=== PATIENT | female | born 1950 | race Caucasian/White ===

== ENCOUNTER 2023-05-24 19:10 | Inpatient (IN) | payer MEDICARE, OTHER ==
[~2023-05-24] VITALS: Ht 157.5 cm; Wt 96.6 kg
[2023-05-24 19:58] LABS: BASOPHILS # (AUTO) 0.1 K/UL (0.0-0.2); BASOPHILS % (AUTO) 0.9 % (0.0-2.0); EOSINOPHILS # (AUTO) 0.2 K/uL (0.0-0.7); EOSINOPHILS % (AUTO) 1.7 % (0.0-7.0); HEMATOCRIT 41.6 % (31.2-41.9); HEMOGLOBIN 13.9 g/dL (10.9-14.3); LYMPHOCYTES # (AUTO) 3.8 K/uL (0.8-4.8); LYMPHOCYTES % (AUTO) 38.8 % (20.5-51.5); MEAN CORPUSCULAR HEMOGLOBIN 31.5 uug (24.7-32.8); MEAN CORPUSCULAR HGB CONC 33 g/dL (32.3-35.6); MEAN CORPUSCULAR VOLUME 94.5 fL (75.5-95.3); MONOCYTES # (AUTO) 0.7 K/uL (0.1-1.30); MONOCYTES % (AUTO) 7.6 % (0.0-11.0); PLATELET COUNT (AUTO) 149 K/uL (179-408); RED CELL DISTRIBUTION WIDTH 13.8 % (12.3-17.7); WHITE BLOOD COUNT (AUTO) 9.7 K/uL (3.8-11.8)
[2023-05-24] MEDS ORDERED: MEMA10TA PO (20:00)
[2023-05-24] MEDS ORDERED: ASPI81TA31 PO (20:00)
[2023-05-24] MEDS ORDERED: OXYC5CAP18 PO (20:00)
[2023-05-24] MEDS ORDERED: DULO20CA PO (20:00)
[2023-05-24] MEDS ORDERED: ACET-3117 PO (20:00)
[2023-05-24] MEDS ORDERED: TOPI100T PO (20:00)
[2023-05-24] MEDS ORDERED: OXYC5TAB3 PO (20:00)
[2023-05-24] MEDS ORDERED: ATOR20TA PO (20:00)
[2023-05-24] MEDS ORDERED: FOLI400T4 PO (20:00)
[2023-05-24 20:04] LABS: DIFFERENTIAL COMMENT 1
[2023-05-24 20:10] LABS: CALCIUM 9.2 mg/dL (8.5-10.1); CARBON DIOXIDE 26 mmol/L (21-32); CHLORIDE 106 mmol/L (98-107); CREATININE 1.2 mg/dL (0.6-1.3); GLUCOSE 112 mg/dL (74-106); POTASSIUM 3.5 mmol/L (3.5-5.1); SODIUM SERUM 143 mmol/L (136-145); UREA NITROGEN, BLOOD 31 mg/dL (7-18)
[2023-05-24 20:15] LABS: ALANINE AMINOTRANSFERASE 26 U/L (14-59); ALBUMIN 3.3 g/dL (3.4-5.0); ALKALINE PHOSPHATASE 113 U/L (50-136); ASPARTATE AMINOTRANSFERASE 20 U/L (15-37); BILIRUBIN,DIRECT 0.1 mg/dL (0.0-0.2); BILIRUBIN,TOTAL 0.3 mg/dL (0.2-1.0); TOTAL PROTEIN, SERUM 6.8 g/dL (6.4-8.2)
[2023-05-24 20:19] LABS: ETHANOL < 3 MG/DL (0-10)
[2023-05-24 20:28] LABS: ACETAMINOPHEN < 2.0 ug/mL (10-30)
[2023-05-24 21:16] LABS: *BILIRUBIN,URIN NEGATIVE (NEGATIVE); *COLOR,URINE YELLOW (YELLOW); *KETONES,URINE NEGATIVE (NEGATIVE); *PROTEIN,URINE NEGATIVE (NEGATIVE); *UROBILINOGEN,URINE 0.2 E.U./dl (NORMAL); LEUKOCYTE ESTERASE ,URINE 1+ (NEGATIVE); NITRITE, URINE POSITIVE (NEGATIVE); PH,URINE 5.5 (5.0-8.0); UGLUCOSE NEGATIVE (NEGATIVE)
[2023-05-24 21:18] LABS: *BLOOD, URINE TRACE (NEGATIVE); *CLARITY,URINE CLOUDY (CLEAR)
[2023-05-24 21:28] LABS: *AMPHETAMINE, URINE NEGATIVE (NEGATIVE); *BARBITURATE, URINE NEGATIVE (NEGATIVE); *BENZODIAZEPINE, URINE NEGATIVE (NEGATIVE); *CANNABINOID, URINE POSITIVE (NEGATIVE); *COCCAINE, URINE NEGATIVE (NEGATIVE); *OPIATE, URINE NEGATIVE (NEGATIVE); *PHENCYCLIDINE SCREEN,URINE NEGATIVE (NEGATIVE)
[2023-05-24 21:29] LABS: FENTANYL, URINE NEGATIVE (NEGATIVE)
[2023-05-24 21:47] LABS: WBC,URINE 80-100 /HPF (0-3)
[2023-05-24 21:48] LABS: BACTERIA,URINE MANY /HPF (NONE SEEN); MUCUS,URINE FEW /LPF (0-FEW); SQUAMOUS EPITHELIAL CELL,UR FEW /HPF (NONE SEEN)
[2023-05-24] MEDS ORDERED: IV NS 1000 ML 1,000 ML IV ONE (22:15)
[2023-05-24] MEDS ORDERED: CEFTRIAXONE 1 G in IV DEXTROSE 5% 50 ML IV ONE (22:15)
[2023-05-24] MEDS ORDERED: CEFTRIAXONE /D5W 50ML IVPB **ER PYXIS IV ONE (22:17)
[2023-05-25 00:05] VITALS: BP 124/75; TEMP 97.5; O2SAT 97
[2023-05-25] MEDS ORDERED: LORAZEPAM 0.5 MG TABLET PO PRN (00:30)
[2023-05-25] MEDS ORDERED: MAGNESIUM HYDROXIDE 30 ML LIQUID UDC PO PRN (00:30)
[2023-05-25] MEDS ORDERED: MAG HYDROX/AL HYDROX/SIMETH 30 ML LIQUID UDC PO PRN (00:30)
[2023-05-25] MEDS ORDERED: BLOOD SUGAR DIAGNOSTIC 1 EACH STRIP VI ONE (00:30)
[2023-05-25] MEDS: ZOLPIDEM 5 MG TABLET PO PRN (01:35)
[2023-05-25] MEDS ORDERED: ERGO500040 PO (02:33)
[2023-05-25] MEDS ORDERED: METO-356 PO (02:33)
[2023-05-25] MEDS ORDERED: TRIA1TAB3 PO (02:33)
[2023-05-25] MEDS ORDERED: FAMO20TA8 PO (02:33)
[2023-05-25] MEDS ORDERED: MELA1TAB27 PO (02:33)
[2023-05-25] MEDS ORDERED: MAGN400O6 PO (02:33)
[2023-05-25] MEDS ORDERED: LISI10TA29 PO (02:33)
[2023-05-25] MEDS ORDERED: BISA10SU61 RC (02:33)
[2023-05-25] MEDS ORDERED: MINE133E RC (02:33)
[2023-05-25 08:00] VITALS: BP 112/71; TEMP 97.6; O2SAT 97
[2023-05-25] MEDS: ESCITALOPRAM OXALATE 10 MG TABLET PO SCH (10:03)
[2023-05-25] MEDS: MEMANTINE HCL 10 MG TABLET PO SCH ×2 (10:03→21:17)
[2023-05-25] MEDS: LORAZEPAM 1 MG TABLET PO PRN (10:08)
[2023-05-25] MEDS ORDERED: ZINC OXIDE OINT 30 GM TUBE TOP PRN (16:00)
[2023-05-25 16:06] VITALS: BP 122/82; TEMP 97.2; O2SAT 97
[2023-05-25 20:01] VITALS: BP 118/76; TEMP 97.5; O2SAT 96
[2023-05-25] MEDS: CEphaleXIN 500 MG CAPSULE PO SCH (21:17)
[2023-05-25] MEDS: MIRTAZAPINE 15 MG TABLET PO SCH (21:17)
[2023-05-25] MEDS: REMEDY ESSENTIAL ZINC PASTE 113 GM TOP SCH (21:17)
[2023-05-26] MEDS: CEphaleXIN 500 MG CAPSULE PO SCH ×3 (06:14→21:46)
[2023-05-26 08:13] VITALS: BP 117/77; TEMP 98; O2SAT 98
[2023-05-26] MEDS: REMEDY ESSENTIAL ZINC PASTE 113 GM TOP SCH ×2 (08:54→20:40)
[2023-05-26] MEDS: MEMANTINE HCL 10 MG TABLET PO SCH ×2 (08:54→20:37)
[2023-05-26] MEDS: ESCITALOPRAM OXALATE 10 MG TABLET PO SCH (08:54)
[2023-05-26 16:26] VITALS: BP 115/74; TEMP 98; O2SAT 99
[2023-05-26 20:00] VITALS: BP 115/62; TEMP 97.7; O2SAT 96
[2023-05-26] MEDS: MIRTAZAPINE 15 MG TABLET PO SCH (20:37)
[2023-05-27] MEDS: CEphaleXIN 500 MG CAPSULE PO SCH ×3 (06:02→21:39)
[2023-05-27 08:16] VITALS: BP 129/77; TEMP 97.8; O2SAT 100
[2023-05-27] MEDS: ESCITALOPRAM OXALATE 10 MG TABLET PO SCH (08:36)
[2023-05-27] MEDS: MEMANTINE HCL 10 MG TABLET PO SCH ×2 (08:37→20:44)
[2023-05-27] MEDS: REMEDY ESSENTIAL ZINC PASTE 113 GM TOP SCH ×2 (08:42→20:45)
[2023-05-27] MEDS ORDERED: BISACODYL 10 MG SUPP.RECT RC PRN (15:30)
[2023-05-27] MEDS ORDERED: OXYCODONE HCL 5 MG TABLET PO PRN (15:30)
[2023-05-27] MEDS ORDERED: MINERAL OIL FLEET ENEMA 133 ML BOTTLE RC PRN (15:30)
[2023-05-27 16:18] VITALS: BP 147/88; TEMP 98.1; O2SAT 99
[2023-05-27] MEDS ORDERED: ERGOCALCIFEROL 50,000 UNIT CAPSULE PO SCH (17:00)
[2023-05-27] MEDS ORDERED: FAMOTIDINE 20 MG TABLET PO SCH (17:00)
[2023-05-27] MEDS: LORAZEPAM 1 MG TABLET PO PRN (20:44)
[2023-05-27] MEDS: MIRTAZAPINE 15 MG TABLET PO SCH (20:44)
[2023-05-27] MEDS: FAMOTIDINE 20 MG TABLET PO SCH (20:44)
[2023-05-27 20:45] VITALS: BP 130/80; TEMP 98; O2SAT 98
[2023-05-27] MEDS: ACETAMINOPHEN 325 MG TABLET PO PRN (21:46)
[2023-05-27] MEDS: ZOLPIDEM 5 MG TABLET PO PRN (22:27)
[2023-05-28] MEDS: CEphaleXIN 500 MG CAPSULE PO SCH ×3 (06:37→20:16)
[2023-05-28] MEDS: ASPIRIN 81 MG TAB.CHEW PO SCH (08:18)
[2023-05-28] MEDS: MEMANTINE HCL 10 MG TABLET PO SCH ×2 (08:18→20:16)
[2023-05-28] MEDS: ESCITALOPRAM OXALATE 10 MG TABLET PO SCH (08:18)
[2023-05-28] MEDS: REMEDY ESSENTIAL ZINC PASTE 113 GM TOP SCH ×2 (08:18→20:17)
[2023-05-28 08:58] VITALS: BP 99/63; TEMP 98.3; O2SAT 97
[2023-05-28 16:30] VITALS: BP 130/83; TEMP 98.1; O2SAT 97
[2023-05-28] MEDS: MIRTAZAPINE 15 MG TABLET PO SCH (20:16)
[2023-05-28] MEDS: FAMOTIDINE 20 MG TABLET PO SCH (20:16)
[2023-05-28 20:38] VITALS: BP 114/85; TEMP 98; O2SAT 98
[2023-05-29] MEDS: CEphaleXIN 500 MG CAPSULE PO SCH (06:14)
[2023-05-29] MEDS: ESCITALOPRAM OXALATE 10 MG TABLET PO SCH (08:33)
[2023-05-29] MEDS: ASPIRIN 81 MG TAB.CHEW PO SCH (08:33)
[2023-05-29] MEDS: MEMANTINE HCL 10 MG TABLET PO SCH ×2 (08:34→20:29)
[2023-05-29] MEDS: REMEDY ESSENTIAL ZINC PASTE 113 GM TOP SCH ×2 (08:34→20:31)
[2023-05-29 08:46] VITALS: BP 105/53; TEMP 98; O2SAT 98
[2023-05-29] MEDS ORDERED: CIPROFLOXACIN HCL 250 MG TABLET PO SCH (10:15)
[2023-05-29 16:09] VITALS: BP 107/80; TEMP 98.1; O2SAT 98
[2023-05-29] MEDS: AMOXICILLIN-CLAVUL 875-125MG TABLET PO SCH (17:21)
[2023-05-29 20:00] VITALS: BP 119/86; TEMP 98.1; O2SAT 99
[2023-05-29] MEDS: FAMOTIDINE 20 MG TABLET PO SCH (20:28)
[2023-05-29] MEDS: MIRTAZAPINE 15 MG TABLET PO SCH (20:29)
[2023-05-29] MEDS: LORAZEPAM 1 MG TABLET PO PRN (20:29)
[2023-05-30 07:30] VITALS: BP 137/85; TEMP 98.4; O2SAT 100
[2023-05-30] MEDS: REMEDY ESSENTIAL ZINC PASTE 113 GM TOP SCH ×2 (08:45→21:12)
[2023-05-30] MEDS: ASPIRIN 81 MG TAB.CHEW PO SCH (08:45)
[2023-05-30] MEDS: AMOXICILLIN-CLAVUL 875-125MG TABLET PO SCH ×2 (08:45→17:37)
[2023-05-30] MEDS: ESCITALOPRAM OXALATE 10 MG TABLET PO SCH (08:45)
[2023-05-30] MEDS: MEMANTINE HCL 10 MG TABLET PO SCH ×2 (08:45→21:11)
[2023-05-30 15:32] VITALS: BP 108/76; TEMP 98; O2SAT 97
[2023-05-30 20:00] VITALS: BP 132/72; TEMP 97.8; O2SAT 100
[2023-05-30] MEDS: FAMOTIDINE 20 MG TABLET PO SCH (21:11)
[2023-05-30] MEDS: MIRTAZAPINE 15 MG TABLET PO SCH (21:11)
[2023-05-30] MEDS: ZOLPIDEM 5 MG TABLET PO PRN (22:32)
[2023-05-31 08:25] VITALS: BP 148/85; TEMP 98.2; O2SAT 98
[2023-05-31] MEDS: ESCITALOPRAM OXALATE 10 MG TABLET PO SCH (08:46)
[2023-05-31] MEDS: ASPIRIN 81 MG TAB.CHEW PO SCH (08:46)
[2023-05-31] MEDS: MEMANTINE HCL 10 MG TABLET PO SCH ×2 (08:46→20:06)
[2023-05-31] MEDS: AMOXICILLIN-CLAVUL 875-125MG TABLET PO SCH ×2 (08:47→17:59)
[2023-05-31] MEDS: REMEDY ESSENTIAL ZINC PASTE 113 GM TOP SCH ×2 (08:56→20:05)
[2023-05-31 15:56] VITALS: BP 137/79; TEMP 98.2; O2SAT 99
[2023-05-31] MEDS: FAMOTIDINE 20 MG TABLET PO SCH (20:06)
[2023-05-31] MEDS: MIRTAZAPINE 15 MG TABLET PO SCH (20:07)
[2023-05-31] MEDS: ACETAMINOPHEN 325 MG TABLET PO PRN (20:11)
[2023-05-31 20:13] VITALS: BP 132/74; TEMP 98.2; O2SAT 100
[2023-05-31] MEDS: ZOLPIDEM 5 MG TABLET PO PRN (22:32)
[2023-06-01 08:17] VITALS: BP 107/66; TEMP 96.8; O2SAT 97
[2023-06-01] MEDS: ASPIRIN 81 MG TAB.CHEW PO SCH (09:47)
[2023-06-01] MEDS: REMEDY ESSENTIAL ZINC PASTE 113 GM TOP SCH (09:55)
[2023-06-01] MEDS: MEMANTINE HCL 10 MG TABLET PO SCH (09:55)
[2023-06-01] MEDS: ESCITALOPRAM OXALATE 10 MG TABLET PO SCH (09:55)
[2023-06-01] MEDS: AMOXICILLIN-CLAVUL 875-125MG TABLET PO SCH (09:56)
== END 2023-06-01 15:15 | DRG 885 ==
LOC: ER 19:19 → GPS 23:47
PROVIDERS: ADMIT Psychiatry & Neurology Psychiatry; ATTEND Internal Medicine
DX: F33.2 Major depressive disorder, recurrent severe without psychotic features (principal); G93.41 Metabolic encephalopathy; N39.0 Urinary tract infection, site not specified; D68.69 Other thrombophilia; E44.1 Mild protein-calorie malnutrition; F03.918 Unspecified dementia, unspecified severity, with other behavioral disturbance; F03.93 Unspecified dementia, unspecified severity, with mood disturbance; F03.94 Unspecified dementia, unspecified severity, with anxiety; Z16.12 Extended spectrum beta lactamase (ESBL) resistance; E78.5 Hyperlipidemia, unspecified; E88.09 Other disorders of plasma-protein metabolism, not elsewhere classified; I10 Essential (primary) hypertension; I25.10 Atherosclerotic heart disease of native coronary artery without angina pectoris; I49.5 Sick sinus syndrome; J44.9 Chronic obstructive pulmonary disease, unspecified; Z86.16 Personal history of COVID-19; Z86.73 Personal history of transient ischemic attack (TIA), and cerebral infarction without residual deficits; Z91.81 History of falling; Z95.0 Presence of cardiac pacemaker; E66.01 Morbid (severe) obesity due to excess calories; Z20.822 Contact with and (suspected) exposure to COVID-19; F41.9 Anxiety disorder, unspecified; I73.9 Peripheral vascular disease, unspecified; Z74.09 Other reduced mobility; M19.90 Unspecified osteoarthritis, unspecified site; M48.00 Spinal stenosis, site unspecified; Z68.39 Body mass index [BMI] 39.0-39.9, adult; Z71.3 Dietary counseling and surveillance; B96.20 Unspecified Escherichia coli [E. coli] as the cause of diseases classified elsewhere; M81.0 Age-related osteoporosis without current pathological fracture; Z86.19 Personal history of other infectious and parasitic diseases
CPT/HCPCS: 36415; 71045; 85025; 93005; G0480; J0696; J7040

== ENCOUNTER 2024-04-03 14:49 | Inpatient (IN) | payer MEDICARE, OTHER ==
[~2024-04-03] VITALS: Ht 167.6 cm; Wt 91.6 kg
[~2024-04-03 14:49] MED LIST: ACET-3117 PO; ASPI81TA31 PO; ATOR20TA PO; BISA10SU61 RC; ERGO500040 PO; FAMO20TA8 PO; FOLI400T4 PO; LISI10TA29 PO; MAGN400O6 PO; METO-356 PO; MINE133E RC; OXYC5CAP18 PO; OXYC5TAB3 PO; TRIA1TAB3 PO
[2024-04-03 15:46] LABS: BASOPHILS # (AUTO) 0.1 K/UL (0.0-0.2); EOSINOPHILS # (AUTO) 0.1 K/uL (0.0-0.7); EOSINOPHILS % (AUTO) 1.3 % (0.0-7.0); LYMPHOCYTES # (AUTO) 3.4 K/uL (0.8-4.8); LYMPHOCYTES % (AUTO) 39.9 % (20.5-51.5); MEAN CORPUSCULAR HEMOGLOBIN 30.7 uug (24.7-32.8); MEAN CORPUSCULAR HGB CONC 33 g/dL (32.3-35.6); MEAN CORPUSCULAR VOLUME 92.4 fL (75.5-95.3); MONOCYTES # (AUTO) 0.9 K/uL (0.1-1.30); NEUTROPHILS % (AUTO) 46.8 % (38.5-71.5); PLATELET COUNT (AUTO) 186 K/uL (179-408); RED BLOOD CELL COUNT(AUTO) 4.55 MIL/uL (3.63-4.92); RED CELL DISTRIBUTION WIDTH 14.6 % (12.3-17.7); WHITE BLOOD COUNT (AUTO) 8.5 K/uL (3.8-11.8)
[2024-04-03 15:47] LABS: DIFFERENTIAL COMMENT 1
[2024-04-03 15:54] LABS: CALCIUM 9.6 mg/dL (8.5-10.1); CARBON DIOXIDE 27 mmol/L (21-32); CHLORIDE 104 mmol/L (98-107); CREATININE 1.3 mg/dL (0.6-1.3); GLUCOSE 110 mg/dL (74-106); POTASSIUM 4.1 mmol/L (3.5-5.1); SODIUM SERUM 140 mmol/L (136-145); UREA NITROGEN, BLOOD 24 mg/dL (7-18)
[2024-04-03 15:59] LABS: ALANINE AMINOTRANSFERASE 24 U/L (14-59); ALBUMIN 3.4 g/dL (3.4-5.0); ALKALINE PHOSPHATASE 86 U/L (50-136); ASPARTATE AMINOTRANSFERASE 20 U/L (15-37); BILIRUBIN,DIRECT 0.2 mg/dL (0.0-0.2); BILIRUBIN,TOTAL 0.5 mg/dL (0.2-1.0); ETHANOL < 3 MG/DL (0-10); TOTAL PROTEIN, SERUM 7.5 g/dL (6.4-8.2)
[2024-04-03 16:00] LABS: ACETAMINOPHEN < 10.0 ug/mL (10-30)
[2024-04-03 16:44] LABS: *BILIRUBIN,URIN NEGATIVE (NEGATIVE); *BLOOD, URINE NEGATIVE (NEGATIVE); *CLARITY,URINE TURBID (CLEAR); *COLOR,URINE YELLOW (YELLOW); *KETONES,URINE TRACE (NEGATIVE); *PROTEIN,URINE 1+ (NEGATIVE); *UROBILINOGEN,URINE 0.2 E.U./dl (NORMAL); LEUKOCYTE ESTERASE ,URINE 1+ (NEGATIVE); NITRITE, URINE POSITIVE (NEGATIVE); UGLUCOSE NEGATIVE (NEGATIVE)
[2024-04-03 17:02] LABS: *AMPHETAMINE, URINE NEGATIVE (NEGATIVE); *BARBITURATE, URINE NEGATIVE (NEGATIVE); *BENZODIAZEPINE, URINE NEGATIVE (NEGATIVE); *CANNABINOID, URINE NEGATIVE (NEGATIVE); *COCCAINE, URINE NEGATIVE (NEGATIVE); *OPIATE, URINE POSITIVE (NEGATIVE); *PHENCYCLIDINE SCREEN,URINE NEGATIVE (NEGATIVE)
[2024-04-03 17:07] LABS: FENTANYL, URINE NEGATIVE (NEGATIVE)
[2024-04-03 17:10] LABS: BACTERIA,URINE MANY /HPF (NONE SEEN); RBC,URINE 0-3 /HPF (0-3); SQUAMOUS EPITHELIAL CELL,UR FEW /HPF (NONE SEEN); WBC,URINE 80-100 /HPF (0-3)
[2024-04-03] MEDS ORDERED: SULFAMETH/TRIMETH 800/160 MG TABLET ONE (17:42)
[2024-04-03] MEDS: SULFAMETH/TRIMETH 800/160 MG TABLET PO ONE (17:43)
[2024-04-03] MEDS ORDERED: MAG HYDROX/AL HYDROX/SIMETH 30 ML LIQUID UDC PO PRN (20:45)
[2024-04-03] MEDS ORDERED: TEMAZEPAM 7.5 MG CAPSULE PO PRN ×2 (20:45)
[2024-04-03 21:00] VITALS: BP 94/54; TEMP 98.1; O2SAT 95
[2024-04-03] MEDS: BLOOD SUGAR DIAGNOSTIC 1 EACH STRIP VI ONE (21:44)
[2024-04-04 08:36] VITALS: BP 94/54; TEMP 98; O2SAT 98
[2024-04-04 08:45] VITALS: BP 94/54; TEMP 98; O2SAT 98
[2024-04-04 09:00] VITALS: BP 100/61; TEMP 98; O2SAT 98
[2024-04-04 15:16] VITALS: BP 116/69; TEMP 98; O2SAT 98
[2024-04-04] MEDS ORDERED: OXCA150T13 PO (17:35)
[2024-04-04] MEDS ORDERED: VITA1TAB37 PO (17:35)
[2024-04-04] MEDS ORDERED: NIFE90TA61 PO (17:35)
[2024-04-04] MEDS ORDERED: METO-357 PO (17:35)
[2024-04-04] MEDS ORDERED: MIRT-121 PO (17:35)
[2024-04-04 20:00] VITALS: BP 128/76; TEMP 98.1; O2SAT 95
[2024-04-04] MEDS: DIVALPROEX 125 MG TABLET.DR PO SCH (20:41)
[2024-04-04] MEDS: MIRTAZAPINE 15 MG TABLET PO SCH (20:41)
[2024-04-05] MEDS: SULFAMETH/TRIMETH 800/160 MG TABLET PO SCH (00:49)
[2024-04-05 08:26] VITALS: BP 121/74; TEMP 98; O2SAT 98
[2024-04-05] MEDS: NIFEdipine XL 90 MG TABSR PO SCH (08:56)
[2024-04-05] MEDS: METOPROLOL SUCCINATE XL 50 MG TAB.SR.24H PO SCH (08:57)
[2024-04-05] MEDS ORDERED: METOPROLOL SUCCINATE XL 50 MG TAB.SR.24H PO SCH (09:00)
[2024-04-05] MEDS ORDERED: SULFAMETH/TRIMETH 800/160 MG TABLET PO SCH (09:00)
[2024-04-05] MEDS: OXYCODONE HCL 5 MG TABLET PO PRN (14:58)
[2024-04-05 15:11] VITALS: BP 103/59; TEMP 98; O2SAT 100
[2024-04-05 20:00] VITALS: BP 102/58; TEMP 98.6; O2SAT 96
[2024-04-06 08:25] VITALS: BP 107/74; TEMP 98.6; O2SAT 98
[2024-04-06] MEDS: DIVALPROEX 125 MG TABLET.DR PO SCH (14:51)
[2024-04-06 16:18] VITALS: BP 122/73; TEMP 98.4; O2SAT 97
[2024-04-06] MEDS: ACETAMINOPHEN 325 MG TABLET PO PRN (20:07)
[2024-04-06] MEDS: QUETIAPINE FUMARATE 25 MG TABLET PO SCH (20:08)
[2024-04-06 20:24] VITALS: BP 129/79; TEMP 98; O2SAT 98
[2024-04-06] MEDS: ZOLPIDEM 5 MG TABLET PO PRN (21:55)
[2024-04-07 09:03] VITALS: BP 134/71; TEMP 98; O2SAT 98
[2024-04-07] MEDS: QUETIAPINE FUMARATE 25 MG TABLET PO PRN (14:51)
[2024-04-07 16:35] VITALS: BP 105/60; TEMP 98.1; O2SAT 98
[2024-04-07 20:11] VITALS: BP 122/66; TEMP 98.1; O2SAT 100
[2024-04-08] MEDS: MAGNESIUM HYDROXIDE 30 ML LIQUID UDC PO PRN (00:45)
[2024-04-08 08:39] VITALS: BP 104/64; TEMP 98; O2SAT 98
[2024-04-08 16:19] VITALS: BP 94/61; TEMP 97.8; O2SAT 97
[2024-04-08 20:19] VITALS: BP 101/62; TEMP 97.9; O2SAT 96
[2024-04-09 07:38] VITALS: BP 113/63; TEMP 98; O2SAT 96
[2024-04-09 15:43] VITALS: BP 100/59; TEMP 97.8; O2SAT 98
[2024-04-09 20:17] VITALS: BP 106/60; TEMP 98.1; O2SAT 96
[2024-04-10 08:31] VITALS: BP 107/65; TEMP 98; O2SAT 96
[2024-04-10] MEDS: DIVALPROEX 250 MG TABLET.DR PO SCH (13:30)
[2024-04-10] MEDS ORDERED: DIVALPROEX 125 MG TABLET.DR PO SCH (14:00)
[2024-04-10 15:34] VITALS: BP 119/71; TEMP 98; O2SAT 94
[2024-04-11 08:50] VITALS: BP 115/64; TEMP 98; O2SAT 96
[2024-04-11 15:55] VITALS: BP 100/56; TEMP 98.2; O2SAT 96
[2024-04-11 20:00] VITALS: BP 83/60; TEMP 97.9; O2SAT 96
[2024-04-11] MEDS: MIRTAZAPINE 15 MG TABLET PO SCH (20:30)
[2024-04-12 07:52] VITALS: BP 111/72; TEMP 98; O2SAT 98
[2024-04-12 15:48] VITALS: BP 92/58; TEMP 98; O2SAT 98
[2024-04-12 20:00] VITALS: BP 115/68; TEMP 97.9; O2SAT 98
[2024-04-12] MEDS: QUETIAPINE FUMARATE 25 MG TABLET PO SCH (20:30)
[2024-04-13 07:46] VITALS: BP 126/78; TEMP 98.3; O2SAT 98
[2024-04-13] MEDS ORDERED: DIVALPROEX 250 MG TABLET.DR PO SCH (14:00)
[2024-04-13] MEDS: DIVALPROEX 125 MG TABLET.DR PO SCH (14:13)
[2024-04-13 16:52] VITALS: BP 119/73; TEMP 98.2; O2SAT 98
[2024-04-13 20:00] VITALS: BP 96/57; TEMP 98.1; O2SAT 98
[2024-04-14] MEDS: QUETIAPINE FUMARATE 25 MG TABLET PO SCH (08:27)
[2024-04-14 08:35] VITALS: BP 102/56; TEMP 98.2; O2SAT 98
[2024-04-14 16:59] VITALS: BP 107/64; TEMP 98; O2SAT 98
[2024-04-14 19:59] VITALS: BP 101/60; TEMP 98.1; O2SAT 96
[2024-04-15 08:00] VITALS: BP 120/68; TEMP 98.1; O2SAT 98
[2024-04-15 16:38] VITALS: BP 124/76; TEMP 98.1; O2SAT 98
[2024-04-15 20:07] VITALS: BP 120/68; TEMP 98.1; O2SAT 96
[2024-04-16 07:50] VITALS: BP 122/75; TEMP 98; O2SAT 99
[2024-04-16 15:55] VITALS: BP 107/67; TEMP 98; O2SAT 98
[2024-04-16 19:54] VITALS: BP 118/70; TEMP 97.9; O2SAT 98
[2024-04-17 07:30] VITALS: BP 124/70; TEMP 98; O2SAT 98
[2024-04-17 08:45] VITALS: BP 124/70
== END 2024-04-17 11:30 | DRG 885 ==
LOC: ER 14:58 → GPS 20:14
PROVIDERS: ADMIT Psychiatry & Neurology Psychiatry; ATTEND Nurse Practitioner Acute Care
DX: F31.9 Bipolar disorder, unspecified (principal); B19.20 Unspecified viral hepatitis C without hepatic coma; M50.021 Cervical disc disorder at C4-C5 level with myelopathy; N39.0 Urinary tract infection, site not specified; F03.94 Unspecified dementia, unspecified severity, with anxiety; F03.92 Unspecified dementia, unspecified severity, with psychotic disturbance; E66.01 Morbid (severe) obesity due to excess calories; M48.02 Spinal stenosis, cervical region; K21.9 Gastro-esophageal reflux disease without esophagitis; I25.10 Atherosclerotic heart disease of native coronary artery without angina pectoris; I10 Essential (primary) hypertension; I73.9 Peripheral vascular disease, unspecified; J44.9 Chronic obstructive pulmonary disease, unspecified; E78.5 Hyperlipidemia, unspecified; H81.10 Benign paroxysmal vertigo, unspecified ear; I49.5 Sick sinus syndrome; Z68.31 Body mass index [BMI] 31.0-31.9, adult; Z87.440 Personal history of urinary (tract) infections; Z95.0 Presence of cardiac pacemaker; Z68.32 Body mass index [BMI] 32.0-32.9, adult; Z79.899 Other long term (current) drug therapy
CPT/HCPCS: 36415; 71045; 80164; 85025; G0480; J3490